=== PATIENT | female | born 1990 | race Two or more races ===

== ENCOUNTER 2023-03-27 22:47 | Emergency (ER) | payer MEDICAID ==
[~2023-03-27] VITALS: Ht 157.5 cm; Wt 92.9 kg
[2023-03-28] MEDS ORDERED: METOCLOPRAMIDE HCL 5MG/ml INJ 2ml VIAL IV ONE (02:00)
[2023-03-28] MEDS ORDERED: DexAMETHasone SOD PHOS 10MG/1ML VIAL INJ IV ONE (02:00)
[2023-03-28] MEDS ORDERED: KETOROLAC TROMETH 30 MG/ML 1ML VIAL IV ONE (02:00)
[2023-03-28] MEDS ORDERED: diphenhdrAMINE HCL 50 MG/1 ML VL IV ONE (02:00)
[2023-03-28] MEDS ORDERED: SODIUM CHLORIDE 0.9% 1,000 ML IV ONE (02:00)
[2023-03-28] MEDS ORDERED: diphenhdrAMINE HCL 25 MG CAP PO ONE (02:45)
[2023-03-28] MEDS ORDERED: DexAMETHasone SOD PHOS 10MG/1ML VIAL INJ IM ONE (02:45)
[2023-03-28] MEDS ORDERED: METOCLOPRAMIDE 10 mg/10ml ORAL soln PO ONE (02:45)
[2023-03-28] MEDS ORDERED: KETOROLAC TROMETH 60MG/2ML VIAL IM ONE (02:45)
[2023-03-28 03:22] VITALS: BP 115/71; PULSE 67; RESP 16; TEMP 97.8; O2SAT 99
== END 2023-03-28 03:25 | disposition home or self-care (01) ==
LOC: ER 22:47
DX: G43.909 Migraine, unspecified, not intractable, without status migrainosus (principal)
CPT/HCPCS: 96372; 99284; J1885; J8597; J1100